=== PATIENT | male | born 1940 | race Caucasian/White ===

== ENCOUNTER → 2017-09-19 | Outpatient (CLI) | payer MEDICARE, BC ==
[~2017-09-19] MED LIST: ATARAX 25MG25 MG/TAB PO; COLACE 100100 MG/CAP PO; FEMARA PO; NORCO 325 MG-51 TAB PO; PROTONIX 40MG T40 MG PO; Prevagen; RYTHMOL 15150 MG/TAB PO; VALIUM 5MG T5 MG/TAB PO; XARELTO10 MG PO; XARELTO20 MG PO
== END ==
LOC: COL.VAS 10:38
DX: I51.9 Heart disease, unspecified (principal); I34.0 Nonrheumatic mitral (valve) insufficiency; I51.7 Cardiomegaly; I51.89 Other ill-defined heart diseases
CPT/HCPCS: Q9967

== ENCOUNTER 2017-09-23 09:53 | Inpatient (IN) | payer MEDICARE, BC ==
[~2017-09-23] VITALS: Ht 167.6 cm; Wt 80.5 kg
[2017-09-26 09:15] LABS: BASO % 0.7 % (0.0-2.0); EOS # 0.1 (0.0-0.7); EOS % 2.3 % (0-4.0); GRAN # 3.4 (1.4-6.5); GRAN % 61.4 % (42.2-75.2); HEMATOCRIT 46.1 % (42.0-52.0); HEMOGLOBIN 14.5 g/dl (13.5-18.0); LYMPH # 1.3 (1.2-3.4); LYMPH % 23.1 % (20.0-51.0); MEAN CELL VOLUME 82 fl (80.0-100.0); MEAN CORPUSCULAR HEMOGLOBIN 26 pg (27.0-31.0); MEAN CORPUSCULAR HGB CONC 32 g/dl (33.0-37.0); MONO # 0.7 (0.1-0.6); MONO % 12.3 % (1.7-9.3); PLATELET COUNT 242 K/mm3 (130-400); RED BLOOD COUNT 5.65 M/mm3 (4.20-5.60); REDCELL DISTRIBUTION WIDTH-CV 15.9 % (11.5-14.5)
[2017-09-26 09:20] LABS: INR 1.9 (0.8-3.0); PROTHROMBIN TIME 21.8 SECONDS (9.7-12.8)
[2017-09-26 09:27] LABS: ALBUMIN 4.2 gm/dL (3.5-5.0); BILIRUBIN,TOTAL 0.6 mg/dL (0.0-1.0); CALCIUM 9.3 mg/dL (8.4-10.2); CREATININE, serum 1.16 mg/dL (0.66-1.25); MAGNESIUM 1.6 mg/dL (1.6-2.3); POTASSIUM 4.7 mmol/L (3.4-5.0); TOTAL PROTEIN 7.3 gm/dL (6.4-8.2)
[2017-09-26 09:41] VITALS: BP 128/91; PULSE 133; TEMP 98.1
[2017-09-26] MEDS ORDERED: DEMADEX 20MG20 M1 PO (10:07)
[2017-09-26] MEDS ORDERED: K-DUR20 MEQ PO (10:07)
[2017-09-26] MEDS ORDERED: ASPIRIN 81M81 MG/TA2 PO (10:10)
[2017-09-26] MEDS ORDERED: LIPITOR 40MG TA40 MG PO (10:10)
[2017-09-26] MEDS ORDERED: ZYRTEC 10MG10 MG PO (10:17)
[2017-09-26] MEDS ORDERED: TIAZAC360 MG PO (10:20)
[2017-09-26] MEDS ORDERED: IBU600 MG PO (10:23)
[2017-09-26] MEDS ORDERED: XARELTO20 MG PO (10:24)
[2017-09-26] MEDS ORDERED: TOPROL XL 25MG25 MG PO (10:24)
[2017-09-26 12:14] VITALS: BP 132/86; PULSE 130; TEMP 98.2
[2017-09-26 16:33] VITALS: BP 142/78; PULSE 95; TEMP 98.5
[2017-09-26 20:27] VITALS: BP 136/90; PULSE 132; TEMP 97.9
[2017-09-26 23:48] VITALS: BP 140/95; PULSE 65; TEMP 98.1
[2017-09-27 03:45] VITALS: BP 139/81; PULSE 87; TEMP 97.9
[2017-09-27 06:44] LABS: CALCIUM 9.2 mg/dL (8.4-10.2); CREATININE, serum 1.16 mg/dL (0.66-1.25); POTASSIUM 4.3 mmol/L (3.4-5.0)
[2017-09-27 07:38] VITALS: BP 122/80; PULSE 83; TEMP 97.8
[2017-09-27 11:17] VITALS: BP 114/78; PULSE 78; TEMP 97.6
[2017-09-27 17:27] VITALS: BP 140/81; PULSE 83; TEMP 97.6
[2017-09-27 20:02] VITALS: BP 133/89; PULSE 73; TEMP 98.7
[2017-09-28 00:22] VITALS: BP 151/85; PULSE 73; TEMP 98
[2017-09-28 04:54] VITALS: BP 132/76; PULSE 69; TEMP 98
[2017-09-28 07:00] LABS: CALCIUM 9.1 mg/dL (8.4-10.2); CREATININE, serum 1.14 mg/dL (0.66-1.25); MAGNESIUM 1.8 mg/dL (1.6-2.3)
[2017-09-28 09:12] VITALS: BP 136/97; PULSE 77; TEMP 97.9
[2017-09-28] MEDS ORDERED: TOPROL XL 25MG25 MG PO (09:57)
[2017-09-28] MEDS ORDERED: BETAPACE 120MG120 MG PO (10:00)
[2017-09-28] MEDS ORDERED: ENTRESTO 24 MG1 EACH PO (10:00)
[2017-09-28] MEDS ORDERED: K-TAB20 PO (10:02)
[2017-09-28] MEDS ORDERED: DEMADEX 20MG20 M1 PO (10:09)
[2017-09-28] MEDS ORDERED: K-DUR 10 MEQ T10 MEQ PO (10:11)
== END 2017-09-28 11:52 | disposition home or self-care (01) | DRG 309 ==
LOC: MEDICAL 09-26 08:36
PROVIDERS: Internal Medicine Cardiovascular Disease
DX: I48.0 Paroxysmal atrial fibrillation (principal); I50.22 Chronic systolic (congestive) heart failure; I48.92 Unspecified atrial flutter; I42.0 Dilated cardiomyopathy; Z87.891 Personal history of nicotine dependence; I34.0 Nonrheumatic mitral (valve) insufficiency; I11.0 Hypertensive heart disease with heart failure